=== PATIENT | female | born 1980 | race Caucasian/White ===

== ENCOUNTER 2016-09-13 03:15 | Emergency (ER) | payer MEDICARE ==
[2015-12-08 06:58] VITALS: BMI 45.3
[~2016-09-13 03:15] MED LIST: ACTIVELLA 1 MG-1 TAB PO; AMBIEN CR12.5 MG/BO; CLARITIN10 MG/TAB PO; CLONAZEPAM2 MG/TAB PO; CYMBALTA60 MG PO; INDERAL10 MG PO; PROTONIX40 MG PO; REMERON15 MG PO; VENTOLIN HFA18 GM
[2016-09-13 03:50] LABS: BASOPHILS 0.4 % (0.0-2.0); EOSINOPHILS 2.6 % (0-7); HEMATOCRIT 40.8 % (36.0-48.0); HEMOGLOBIN 13.5 g/dL (12-16); IMMATURE GRANULOCYTES 0.4 % (0-5); LYMPHOCYTES 36.8 % (15-50); MCH 30.5 pg (26.0-34.0); MCHC 33.1 g/dL (31.0-37.0); MCV 92.3 fL (80.0-100.0); MEAN PLATELET VOLUME 10.6 fL (7.4-10.4); MONOCYTES 6.1 % (2-11); NEUTROPHILS 53.7 % (40-80); RBC 4.42 10x6/uL (4.00-5.40); WBC 10.6 10x3/uL (4.8-10.8)
[2016-09-13 03:51] LABS: PLATELET COUNT 249 10x3/uL (130-400)
[2016-09-13 03:52] LABS: APPEARANCE CLEAR (CLEAR); BILIRUBIN NEGATIVE (NEGATIVE); COLOR YELLOW (YELLOW); GLUCOSE NEGATIVE (NEGATIVE); KETONE NEGATIVE (NEGATIVE); LEUKOCYTE ESTERASE NEGATIVE (NEGATIVE); NITRITE NEGATIVE (NEGATIVE); PROTEIN NEGATIVE (NEGATIVE); UROBILINOGEN NORMAL (NORMAL)
[2016-09-13 04:43] LABS: ALBUMIN 3.6 g/dL (3.4-5.0); ALKALINE PHOSPHATASE 88 U/L (46-116); ALT (SGPT) 23 U/L (10-68); AMYLASE - SERUM 31 U/L (25-115); BILIRUBIN - TOTAL 0.15 mg/dL (0.2-1.3); CALC OSMOLALITY 278 mosm/kg (275-300); CALCIUM 8.9 mg/dL (8.5-10.1); CARBON DIOXIDE 23.5 mmol/L (21.0-32.0); CHLORIDE - SERUM 104 mmol/L (98-107); CREATININE - SERUM 0.7 mg/dL (0.6-1.3); GLUCOSE 120 mg/dL (74-106); LIPASE 125 U/L (73-393); POTASSIUM - SERUM 3.5 mmol/L (3.5-5.1); PROTEIN - SERUM 7.4 g/dL (6.4-8.2); SODIUM 140 mmol/L (136-145); UREA NITROGEN 10 mg/dL (7-18); eGFR NON AFRICAN AMERICAN > 90 mL/min (90-120)
== END 2016-09-13 04:38 | disposition left against medical advice (07) ==
LOC: D.ER 03:15
PROVIDERS: Surgery
DX: K29.00 Acute gastritis without bleeding (principal); F31.9 Bipolar disorder, unspecified; K21.9 Gastro-esophageal reflux disease without esophagitis

== ENCOUNTER 2017-01-16 18:57 | Emergency (ER) | payer MEDICARE ==
[2015-12-08 06:58] VITALS: BMI 45.3
[2017-01-16 19:40] LABS: BASOPHILS 0.2 % (0-2); HEMATOCRIT 40.6 % (36.0-48.0); HEMOGLOBIN 13.1 g/dL (12-16); IMMATURE GRANULOCYTES 0.5 % (0-5); LYMPHOCYTES 35.6 % (15-50); MCH 29.6 pg (26.0-34.0); MCHC 32.3 g/dL (31.0-37.0); MCV 91.6 fL (80.0-100.0); MEAN PLATELET VOLUME 9.1 fL (7.4-10.4); MONOCYTES 7.6 % (2-11); NEUTROPHILS 54.1 % (40-80); RBC 4.43 10x6/uL (4.00-5.40); RDW 13.3 % (11.5-14.5); WBC 14.9 10x3/uL (4.8-10.8)
[2017-01-16 19:50] LABS: PLATELET COUNT 380 10x3/uL (130-400)
[2017-01-16 19:57] LABS: ALBUMIN 3.4 g/dL (3.4-5.0); ALKALINE PHOSPHATASE 98 U/L (46-116); ALT (SGPT) 39 U/L (10-68); BILIRUBIN - TOTAL 0.16 mg/dL (0.2-1.3); CALC OSMOLALITY 278 mosm/kg (275-300); CALCIUM 9.5 mg/dL (8.5-10.1); CARBON DIOXIDE 32.3 mmol/L (21.0-32.0); CHLORIDE - SERUM 99 mmol/L (98-107); CREATININE - SERUM 0.9 mg/dL (0.6-1.3); GLUCOSE 141 mg/dL (74-106); POTASSIUM - SERUM 3.9 mmol/L (3.5-5.1); PROTEIN - SERUM 7.8 g/dL (6.4-8.2); SODIUM 138 mmol/L (136-145); UREA NITROGEN 15 mg/dL (7-18); eGFR NON AFRICAN AMERICAN 75 mL/min (90-120)
[2017-01-16 20:12] LABS: CHOLESTEROL, TOTAL 183 mg/dL (0-200); CKMB 3.5 U/L (0.0-3.6); CREATINE KINASE 455 UL (21-215); HDL CHOLESTEROL 37 mg/dL (32-96); LDL CHOLESTEROL 92 mg/dL (0-100); LDL-HDL RATIO 2.5 ratio (1.5-3.5); TRIGLYCERIDE 273 mg/dL (30-200)
[2017-01-16 20:13] LABS: TROPONIN-I < 0.017 ng/mL (0.000-0.060)
== END 2017-01-16 22:01 | disposition home or self-care (01) ==
LOC: D.ER 18:57
PROVIDERS: Emergency Medicine
DX: R07.9 Chest pain, unspecified (principal); J44.1 Chronic obstructive pulmonary disease with (acute) exacerbation; F31.89 Other bipolar disorder; K21.9 Gastro-esophageal reflux disease without esophagitis; R53.1 Weakness; R06.00 Dyspnea, unspecified; R60.9 Edema, unspecified; R00.0 Tachycardia, unspecified

== ENCOUNTER 2017-08-07 13:07 | Emergency (ER) | payer MEDICARE ==
[2015-12-08 06:58] VITALS: BMI 45.3
== END 2017-08-07 15:43 | disposition home or self-care (01) ==
LOC: D.ER 13:07
DX: S93.401A Sprain of unspecified ligament of right ankle, initial encounter (principal); W10.9XXA Fall (on) (from) unspecified stairs and steps, initial encounter; Y93.89 Activity, other specified; Y92.019 Unspecified place in single-family (private) house as the place of occurrence of the external cause; M25.471 Effusion, right ankle; F17.200 Nicotine dependence, unspecified, uncomplicated; J44.9 Chronic obstructive pulmonary disease, unspecified; K21.9 Gastro-esophageal reflux disease without esophagitis

== ENCOUNTER 2017-10-13 07:44 | Emergency (ER) | payer MEDICARE ==
[2015-12-08 06:58] VITALS: BMI 45.3
[2017-10-13 08:18] LABS: BASOPHILS 0.4 % (0-2); EOSINOPHILS 2.9 % (0-7); HEMATOCRIT 42.5 % (36.0-48.0); HEMOGLOBIN 14.2 g/dL (12-16); IMMATURE GRANULOCYTES 0.2 % (0-5); LYMPHOCYTES 45.1 % (15-50); MCH 30.9 pg (26.0-34.0); MCHC 33.4 g/dL (31.0-37.0); MCV 92.4 fL (80.0-100.0); MONOCYTES 7.1 % (2-11); NEUTROPHILS 44.3 % (40-80); PLATELET COUNT 319 10x3/uL (130-400); WBC 9.6 10x3/uL (4.8-10.8)
[2017-10-13 08:36] LABS: ALBUMIN 3.6 g/dL (3.4-5.0); ALKALINE PHOSPHATASE 120 U/L (46-116); ALT (SGPT) 26 U/L (10-68); CALC OSMOLALITY 276 mosm/kg (275-300); CALCIUM 9.3 mg/dL (8.5-10.1); CARBON DIOXIDE 25.6 mmol/L (21.0-32.0); CHLORIDE - SERUM 104 mmol/L (98-107); CREATININE - SERUM 0.9 mg/dL (0.6-1.3); GLUCOSE 102 mg/dL (74-106); POTASSIUM - SERUM 4.2 mmol/L (3.5-5.1); PROTEIN - SERUM 7.7 g/dL (6.4-8.2); SODIUM 138 mmol/L (136-145); UREA NITROGEN 16 mg/dL (7-18); eGFR NON AFRICAN AMERICAN 75 mL/min (90-120)
[2017-10-13 08:44] LABS: AMYLASE - SERUM 27 U/L (25-115); HCG - QUANTITATIVE (MATERNAL) 3 mIU/mL; LIPASE 124 U/L (73-393)
[2017-10-13 08:54] LABS: APPEARANCE HAZY (CLEAR); COLOR ORANGE (YELLOW); SPECIFIC GRAVITY 1.015 (1.005-1.020)
[2017-10-13 08:58] LABS: BACTERIA FEW /hpf (NONE SEEN); EPITHELIAL CELLS RARE /hpf (0-5); MUCUS <1+ /lpf (NONE SEEN); RED CELLS - URINE RARE /hpf (0-5)
== END 2017-10-13 10:49 | disposition home or self-care (01) ==
LOC: D.ER 07:44
PROVIDERS: Family Medicine
DX: N39.0 Urinary tract infection, site not specified (principal); J44.9 Chronic obstructive pulmonary disease, unspecified; K21.9 Gastro-esophageal reflux disease without esophagitis

== ENCOUNTER 2018-06-07 13:40 | Emergency (ER) | payer MEDICARE, MEDICAID ==
[~2018-06-07] VITALS: Ht 165.1 cm; Wt 122.5 kg
[2018-06-07 14:02] VITALS: Ht 165.1 cm; Wt 122.5 kg
[2018-06-07 16:17] LABS: BASOPHILS 0.5 % (0-2); EOSINOPHILS 2.7 % (0-7); HEMATOCRIT 40.5 % (36.0-48.0); HEMOGLOBIN 13.6 g/dL (12-16); IMMATURE GRANULOCYTES 0.3 % (0-5); LYMPHOCYTES 43.8 % (15-50); MCH 29.3 pg (26.0-34.0); MCHC 33.6 g/dL (31.0-37.0); MCV 87.3 fL (80.0-100.0); MEAN PLATELET VOLUME 9.1 fL (7.4-10.4); MONOCYTES 6.5 % (2-11); NEUTROPHILS 46.2 % (40-80); PLATELET COUNT 353 10x3/uL (130-400); RBC 4.64 10x6/uL (4.00-5.40); RDW 13.5 % (11.5-14.5); WBC 12.3 10x3/uL (4.8-10.8)
[2018-06-07 16:42] LABS: ALBUMIN 3.5 g/dL (3.4-5.0); ALKALINE PHOSPHATASE 101 U/L (46-116); ALT (SGPT) 28 U/L (10-68); BILIRUBIN - TOTAL 0.14 mg/dL (0.2-1.3); CALC OSMOLALITY 280 mosm/kg (275-300); CALCIUM 9.1 mg/dL (8.5-10.1); CARBON DIOXIDE 26.5 mmol/L (21.0-32.0); CHLORIDE - SERUM 104 mmol/L (98-107); CREATININE - SERUM 0.7 mg/dL (0.6-1.3); GLUCOSE 107 mg/dL (74-106); POTASSIUM - SERUM 3.9 mmol/L (3.5-5.1); PROTEIN - SERUM 7.8 g/dL (6.4-8.2); SODIUM 141 mmol/L (136-145); UREA NITROGEN 12 mg/dL (7-18); eGFR NON AFRICAN AMERICAN > 90 mL/min (90-120)
[2018-06-07] MEDS ORDERED: BUTALB-APAP-CA1 EACH PO (17:18)
[2018-06-07 17:43] VITALS: BP 165/89
== END 2018-06-07 17:46 | disposition home or self-care (01) ==
LOC: D.ER 13:40
PROVIDERS: Family Medicine
DX: G43.909 Migraine, unspecified, not intractable, without status migrainosus (principal); Z87.09 Personal history of other diseases of the respiratory system; J06.9 Acute upper respiratory infection, unspecified; F17.200 Nicotine dependence, unspecified, uncomplicated

== ENCOUNTER 2018-06-24 08:58 | Emergency (ER) | payer MEDICARE, MEDICAID ==
[~2018-06-24 08:58] MED LIST changes: +BUTALB-APAP-CA1 EACH PO
[2018-06-24 09:05] VITALS: Ht 165.1 cm
[2018-06-24] MEDS ORDERED: ATIVAN2 MG PO (09:07)
[2018-06-24] MEDS ORDERED: HYDROCODON-ACE1 EAC7 PO (10:25)
[2018-06-24] MEDS ORDERED: ROBAXIN500 MG PO (10:25)
[2018-06-24 10:50] VITALS: BP 142/87
== END 2018-06-24 10:55 | disposition home or self-care (01) ==
LOC: D.ER 08:58
DX: M17.12 Unilateral primary osteoarthritis, left knee (principal); S83.92XA Sprain of unspecified site of left knee, initial encounter; W01.0XXA Fall on same level from slipping, tripping and stumbling without subsequent striking against object, initial encounter; Y93.89 Activity, other specified; Y92.019 Unspecified place in single-family (private) house as the place of occurrence of the external cause; F17.200 Nicotine dependence, unspecified, uncomplicated

== ENCOUNTER 2018-06-25 14:14 | Emergency (ER) | payer MEDICARE, MEDICAID ==
[~2018-06-25] VITALS: Ht 165.1 cm; Wt 118.2 kg
[~2018-06-25 14:14] MED LIST changes: +ATIVAN2 MG PO; +HYDROCODON-ACE1 EAC7 PO; +ROBAXIN500 MG PO
[2018-06-25 14:44] VITALS: Ht 165.1 cm; Wt 118.2 kg
[2018-06-25 14:54] VITALS: BP 125/64
== END 2018-06-25 14:55 | disposition home or self-care (01) ==
LOC: D.ER 14:14
DX: M25.562 Pain in left knee (principal)

== ENCOUNTER → 2018-07-14 10:54 | Outpatient (CLI) | payer MEDICARE, MEDICAID ==
[2018-06-25 14:44] VITALS: BMI 43.3
[~2018-07-14 10:54] MED LIST changes: +AMITRIPTYLINE150 MG PO; +CATAPRES0.1 MG PO; +OMEPRAZOLE20 M1 PO
== END | disposition home or self-care (01) ==
LOC: D.MRI 07-06 13:00
DX: S83.242A Other tear of medial meniscus, current injury, left knee, initial encounter (principal); X58.XXXA Exposure to other specified factors, initial encounter

== ENCOUNTER 2018-08-03 08:30 | Day surgery (SDC) | payer MEDICARE, MEDICAID ==
[2018-07-28 09:31] LABS: BASOPHILS 0.5 % (0-2); EOSINOPHILS 2.8 % (0-7); HEMATOCRIT 41.4 % (36.0-48.0); IMMATURE GRANULOCYTES 0.1 % (0-5); LYMPHOCYTES 50.4 % (15-50); MCH 29.3 pg (26.0-34.0); MCHC 33.8 g/dL (31.0-37.0); MCV 86.6 fL (80.0-100.0); MEAN PLATELET VOLUME 8.6 fL (7.4-10.4); MONOCYTES 7.4 % (2-11); NEUTROPHILS 38.8 % (40-80); PLATELET COUNT 317 10x3/uL (130-400); RBC 4.78 10x6/uL (4.00-5.40); RDW 14.6 % (11.5-14.5); WBC 9.7 10x3/uL (4.8-10.8)
[2018-07-28 09:42] LABS: CALC OSMOLALITY 279 mosm/kg (275-300); CALCIUM 8.9 mg/dL (8.5-10.1); CARBON DIOXIDE 26.4 mmol/L (21.0-32.0); CHLORIDE - SERUM 102 mmol/L (98-107); CREATININE - SERUM 0.9 mg/dL (0.6-1.3); GLUCOSE 122 mg/dL (74-106); POTASSIUM - SERUM 3.8 mmol/L (3.5-5.1); SODIUM 139 mmol/L (136-145); UREA NITROGEN 15 mg/dL (7-18); eGFR NON AFRICAN AMERICAN 75 mL/min (90-120)
[~2018-08-03] VITALS: Ht 165.1 cm; Wt 123.8 kg
[2018-08-03 08:51] VITALS: BP 126/71; Ht 165.1 cm; Wt 123.8 kg
--- NOTE | 2018-08-03 14:05 | NUR ---
PATIENT COMPLAINS OF NEED TO VOID, BEDPAN PLACED. PATIENT UNABLE TO VOID ON BEDPAN. PATIENT BEGINS TO COMPLAIN OF SEVERE PAIN IN LEFT KNEE. HINGED BRACE REMAINS IN PLACE, NO CHANGE TO ASSESSMENT OF KNEE
--- NOTE | 2018-08-03 15:15 | NUR ---
PATIENT STATES NEED TO GET UP TO BATHROOM, UNABLE TO VOID ON BEDPAN. PATIENT WANTS TO USE CRUTCHES. PATIENT STANDS AT BEDSIDE, MAINTAINING NON WEIGHT-BEARING ON LEFT LE. PATIENT TAKES 4 STEPS INDEPENDENTLY WITH CRUTCHES AND THEN LEANS AGAINST DOOR FRAME TO BATHROOM AND STARTS TO LOSE BALANCE. THIS NURSE ASSISTS PATIENT TO SLIDE DOWN TO FLOOR. PATIENT COMPLAINING OF SEVERE PAIN IN LEFT KNEE. DENIES PAIN ELSEWHERE. TWO NURSES ASSIST PATIENT TO STAND UP FROM FLOOR. ASSESSMENT REVEALS NO OBVIOUS INJURIES. KNEE REMAINS IN HINGED BRACE, NO CHANGE IN OUTWARD ASSESSMENT OF LEFT KNEE. VSS. PATIENT ON ROOM AIR, O2 SAT 93%, BP 127/81, PULSE 99, RR 22. PATIENT RETURNS TO BED. DR LARA NOTIFIED BY GLEN METCALF RN OF THIS INCIDENT
--- NOTE | 2018-08-03 15:50 | NUR ---
PATIENT CONTINUES TO COMPLAIN OF PAIN IN KNEE BUT IS NOW MUCH MORE CALM AND SHOWING LESS OUTWARD SIGNS OF PAIN. PATIENT ASKS "IS DR LARA GOING TO COME SEE ME? IF HE'S NOT, I NEED TO GET OUT OF HERE, I NEED TO GO SMOKE. CAN I GO SMOKE AND COME BACK? UGH I HAVE TO GO SMOKE, I'LL JUST WALK OUT OF HERE IF I HAVE TO." NO ORDERS HAVE BEEN RECEIVED FROM DR LARA SINCE REPORT OF FALL. PAGE PLACED TO DR LARA
--- NOTE | 2018-08-03 16:12 | NUR ---
THIS NURSE SPEAKS WITH DR LARA BY PHONE ABOUT PATIENT'S FALL AND CURRENT CONDITION. ORDER RECEIVED FOR KNEE X-RAY. PATIENT CONTINUES TO ASK TO GO HOME OR TO GO SMOKE, PATIENT UPDATED ON CURRENT PLAN TO AWAIT RADIOLOGIST X-RAY REPORT AND DISCHARGE HOME IF NO SIGNS OF FRACTURE. PATIENT LYING IN BED CALMLY, ASKING FOR FOOD AND ASKING TO GO SMOKE
--- NOTE | 2018-08-03 17:20 | NUR ---
DR CHOE CALLS WITH X-RAY REPORT: "MODERATE SUPRAPATELLAR EFFUSION WITH AIR, NO OBVIOUS FRACTURE." CALL PLACED TO DR LARA BY THIS NURSE WITH THIS REPORT. DR LARA STATES TO DISCHARGE PATIENT HOME
--- NOTE | 2018-08-03 17:36 | NUR ---
DISCHARGE INSTRUCTIONS REVIEWED WITH PATIENT, DISCHARGED HOME VIA WHEELCHAIR TO PRIVATE VEHICLE
== END 2018-08-03 17:35 | disposition home or self-care (01) ==
LOC: D.OPS 08:30 → D.PAN 08:30 → D.OPS 10:00
PROVIDERS: Orthopaedic Surgery
DX: S83.512A Sprain of anterior cruciate ligament of left knee, initial encounter (principal); S83.282A Other tear of lateral meniscus, current injury, left knee, initial encounter; M94.262 Chondromalacia, left knee; Z01.812 Encounter for preprocedural laboratory examination

== ENCOUNTER 2018-08-04 11:57 | Emergency (ER) | payer MEDICARE, MEDICAID ==
[~2018-08-04] VITALS: Ht 165.1 cm; Wt 124.1 kg
[2018-08-04 12:01] VITALS: Ht 165.1 cm; Wt 124.1 kg
[2018-08-04 16:15] VITALS: BP 135/73
== END 2018-08-04 14:14 | disposition home or self-care (01) ==
LOC: D.ER 11:57
DX: G89.18 Other acute postprocedural pain (principal); Z91.81 History of falling; M25.562 Pain in left knee; F17.200 Nicotine dependence, unspecified, uncomplicated

== ENCOUNTER 2018-09-01 14:20 | Emergency (ER) | payer MEDICARE, MEDICAID ==
[~2018-09-01] VITALS: Ht 165.1 cm; Wt 119.5 kg
[2018-09-01 14:57] VITALS: Ht 165.1 cm; Wt 119.5 kg
[2018-09-01 17:28] VITALS: BP 118/79
== END 2018-09-01 17:58 | disposition home or self-care (01) ==
LOC: D.ER 14:20
DX: M25.462 Effusion, left knee (principal)

== ENCOUNTER 2018-11-27 22:07 | Emergency (ER) | payer MEDICARE, MEDICAID ==
[~2018-11-27] VITALS: Ht 165.1 cm; Wt 125.0 kg
[2018-11-27 22:15] VITALS: Ht 165.1 cm; Wt 125.0 kg
[2018-11-27 23:50] VITALS: BP 141/87
== END 2018-11-27 23:50 | disposition home or self-care (01) ==
LOC: D.ER 22:07
DX: G44.209 Tension-type headache, unspecified, not intractable (principal)

== ENCOUNTER 2019-02-08 12:20 | Emergency (ER) | payer MEDICARE, MEDICAID ==
[~2019-02-08] VITALS: Ht 165.1 cm; Wt 127.3 kg
[2019-02-08 12:26] VITALS: Ht 165.1 cm; Wt 127.3 kg
[2019-02-08] MEDS ORDERED: THORAZINE25 MG PO (12:30)
[2019-02-08] MEDS ORDERED: ZOLOFT100 MG PO (12:31)
[2019-02-08] MEDS ORDERED: ZOFRAN4 MG PO (12:31)
[2019-02-08 12:47] LABS: BASOPHILS 0.6 % (0-2); EOSINOPHILS 2.2 % (0-7); HEMATOCRIT 39.3 % (36.0-48.0); HEMOGLOBIN 13.6 g/dL (12-16); IMMATURE GRANULOCYTES 0.2 % (0-5); LYMPHOCYTES 39.4 % (15-50); MCH 30.8 pg (26.0-34.0); MCHC 34.6 g/dL (31.0-37.0); MCV 89.1 fL (80.0-100.0); MEAN PLATELET VOLUME 9.1 fL (7.4-10.4); MONOCYTES 7.5 % (2-11); NEUTROPHILS 50.1 % (40-80); PLATELET COUNT 304 10x3/uL (130-400); RBC 4.41 10x6/uL (4.00-5.40); RDW 14.3 % (11.5-14.5); WBC 10.7 10x3/uL (4.8-10.8)
[2019-02-08] MEDS ORDERED: TRILEPTAL300 MG PO (12:48)
[2019-02-08 13:04] LABS: ACETAMINOPHEN 3.3 ug/mL (10.0-30.0); ALBUMIN 3.6 g/dL (3.4-5.0); BILIRUBIN - TOTAL 0.25 mg/dL (0.2-1.3); CALCIUM 8.9 mg/dL (8.5-10.1); CARBON DIOXIDE 28.3 mmol/L (21.0-32.0); CREATININE - SERUM 0.9 mg/dL (0.6-1.3); MAGNESIUM - SERUM 1.6 mg/dL (1.8-2.4); POTASSIUM - SERUM 3.3 mmol/L (3.5-5.1); PROTEIN - SERUM 7.9 g/dL (6.4-8.2)
[2019-02-08 13:08] LABS: APPEARANCE CLEAR (CLEAR); BILIRUBIN NEGATIVE (NEGATIVE); COLOR YELLOW (YELLOW); GLUCOSE NEGATIVE (NEGATIVE); KETONE NEGATIVE (NEGATIVE); NITRITE NEGATIVE (NEGATIVE); PROTEIN NEGATIVE (NEGATIVE); SPECIFIC GRAVITY 1.015 (1.005-1.020); UROBILINOGEN NORMAL (NORMAL)
[2019-02-08 13:19] LABS: UDS - AMPHET NEGATIVE QUAL (NEGATIVE); UDS - BARB NEGATIVE QUAL (NEGATIVE); UDS - BENZO NEGATIVE QUAL (NEGATIVE); UDS - COCAINE NEGATIVE QUAL (NEGATIVE); UDS - OPIATE POSITIVE QUAL (NEGATIVE); UDS - PCP NEGATIVE QUAL (NEGATIVE); UDS - THC NEGATIVE QUAL (NEGATIVE)
--- NOTE | 2019-02-08 14:35 | NUR ---
DR. JUAN NOTIFIED AND SITTER ORDERED. SITTER IN LINE OF SIGHT. NOTIFIED CHARGE NURSE AND ATTENDING IN REGARDS TO ASSESSMENT FINDINGS. RESOURCES GIVEN TO PT AND SAFETY PLAN INTIATED.
[2019-02-08 19:00] VITALS: BP 126/85
== END 2019-02-08 22:24 ==
LOC: D.ER 12:20
PROVIDERS: Family Medicine
DX: R45.851 Suicidal ideations (principal)

== ENCOUNTER 2019-08-13 17:14 | Emergency (ER) | payer MEDICARE, MEDICAID ==
[~2019-08-13] VITALS: Ht 162.6 cm; Wt 118.9 kg
[~2019-08-13 17:14] MED LIST changes: +THORAZINE25 MG PO; +TRILEPTAL300 MG PO; +ZOFRAN4 MG PO; +ZOLOFT100 MG PO
[2019-08-13 17:51] VITALS: BP 154/85; Ht 162.6 cm; Wt 118.9 kg
== END 2019-08-13 19:10 | disposition left against medical advice (07) ==
LOC: D.ER 17:14
DX: S89.92XA Unspecified injury of left lower leg, initial encounter (principal)

== ENCOUNTER 2020-11-23 16:00 | Emergency (ER) | payer MEDICARE, MEDICAID ==
[~2020-11-23] VITALS: Ht 162.6 cm; Wt 123.8 kg
[2020-11-23 16:03] VITALS: BP 112/57; Ht 162.6 cm; Wt 123.8 kg
[2020-11-23 16:30] LABS: BASOPHILS 1.2 % (0-2); EOSINOPHILS 2.7 % (0-7); HEMATOCRIT 39.2 % (36.0-48.0); MCH 29.4 pg (26.0-34.0); MCHC 33.2 g/dL (31.0-37.0); MCV 88.5 fL (80.0-100.0); MONOCYTES 8.2 % (2-11); NEUTROPHILS 48.9 % (40-80); PLATELET COUNT 362 10x3/uL (130-400); RBC 4.43 10x6/uL (4.00-5.40); RDW 15.9 % (11.5-14.5); WBC 9.7 10x3/uL (4.8-10.8)
[2020-11-23 16:41] LABS: CALC OSMOLALITY 287 mosm/kg (275-300); CALCIUM 8.6 mg/dL (8.5-10.1); CARBON DIOXIDE 28.8 mmol/L (21.0-32.0); CHLORIDE - SERUM 108 mmol/L (98-107); CREATININE - SERUM 0.7 mg/dL (0.6-1.3); GLUCOSE 130 mg/dL (74-106); POTASSIUM - SERUM 3.3 mmol/L (3.5-5.1); SODIUM 145 mmol/L (136-145); UREA NITROGEN 5 mg/dL (7-18); eGFR NON AFRICAN AMERICAN > 90 mL/min (90-120)
[2020-11-23 16:56] LABS: ALKALINE PHOSPHATASE 100 U/L (30-120); ALT (SGPT) 19 U/L (10-68); AMYLASE - SERUM 24 U/L (25-115); BILIRUBIN - TOTAL 0.11 mg/dL (0.2-1.3); LIPASE 74 U/L (73-393); PROTEIN - SERUM 6.7 g/dL (6.4-8.2)
[2020-11-23 16:58] LABS: TROPONIN-I < 0.017 ng/mL (0.000-0.060)
[2020-11-23 17:05] LABS: ALBUMIN 3.2 g/dL (3.4-5.0)
[2020-11-23 17:47] LABS: HCG URINE NEGATIVE (NEGATIVE)
[2020-11-23 17:50] LABS: BILIRUBIN NEGATIVE (NEGATIVE); KETONE NEGATIVE (NEGATIVE); NITRITE NEGATIVE (NEGATIVE); UROBILINOGEN NORMAL mg/dL (< 2)
== END 2020-11-23 18:01 | disposition home or self-care (01) ==
LOC: D.ER 16:00
PROVIDERS: Family Medicine
DX: R10.9 Unspecified abdominal pain (principal); J44.9 Chronic obstructive pulmonary disease, unspecified; K21.9 Gastro-esophageal reflux disease without esophagitis

== ENCOUNTER 2020-11-25 18:11 | Emergency (ER) | payer MEDICARE, MEDICAID ==
[~2020-11-25] VITALS: Ht 162.6 cm; Wt 124.1 kg
[2020-11-25 18:13] VITALS: BP 153/80; Ht 162.6 cm; Wt 124.1 kg
[2020-11-25 18:48] LABS: BASOPHILS 1.1 % (0-2); EOSINOPHILS 1.6 % (0-7); HEMATOCRIT 37.4 % (36.0-48.0); HEMOGLOBIN 12.5 g/dL (12-16); LYMPHOCYTES 34.6 % (15-50); MCH 29.5 pg (26.0-34.0); MCHC 33.5 g/dL (31.0-37.0); MCV 88.1 fL (80.0-100.0); MONOCYTES 6.4 % (2-11); NEUTROPHILS 56.3 % (40-80); PLATELET COUNT 356 10x3/uL (130-400); RBC 4.25 10x6/uL (4.00-5.40); RDW 15.7 % (11.5-14.5); WBC 12.1 10x3/uL (4.8-10.8)
[2020-11-25 19:01] LABS: CALC OSMOLALITY 283 mosm/kg (275-300); CALCIUM 8.3 mg/dL (8.5-10.1); CARBON DIOXIDE 28.7 mmol/L (21.0-32.0); CHLORIDE - SERUM 105 mmol/L (98-107); CREATININE - SERUM 0.7 mg/dL (0.6-1.3); GLUCOSE 105 mg/dL (74-106); POTASSIUM - SERUM 3.1 mmol/L (3.5-5.1); SODIUM 144 mmol/L (136-145); UREA NITROGEN 5 mg/dL (7-18); eGFR NON AFRICAN AMERICAN > 90 mL/min (90-120)
[2020-11-25 19:10] LABS: ALBUMIN 3.1 g/dL (3.4-5.0); ALKALINE PHOSPHATASE 94 U/L (30-120); ALT (SGPT) 31 U/L (10-68); AMYLASE - SERUM 21 U/L (25-115); BILIRUBIN - TOTAL 0.24 mg/dL (0.2-1.3); LIPASE 60 U/L (73-393); PROTEIN - SERUM 6.7 g/dL (6.4-8.2)
[2020-11-25 19:12] LABS: TROPONIN-I < 0.017 ng/mL (0.000-0.060)
[2020-11-25 19:29] LABS: BILIRUBIN NEGATIVE (NEGATIVE); KETONE NEGATIVE mg/dL (< 1+); NITRITE NEGATIVE (NEGATIVE); PH 6.5 (5.0-8.0); UROBILINOGEN NORMAL mg/dL (< 2)
== END 2020-11-25 23:44 | disposition home or self-care (01) ==
LOC: D.ER 18:11
PROVIDERS: Emergency Medicine
DX: R10.11 Right upper quadrant pain (principal); J44.9 Chronic obstructive pulmonary disease, unspecified; K21.9 Gastro-esophageal reflux disease without esophagitis; Z72.0 Tobacco use